=== PATIENT | female | born 1990 | race Caucasian/White ===

== ENCOUNTER 2016-11-30 12:57 | Emergency (ER) | payer OTHER ==
[~2016-11-30] VITALS: Ht 167.6 cm; Wt 73.5 kg
[~2016-11-30 12:57] MED LIST: AMOXICILLIN875 MG PO; ANAPROX DS550 M1 PO; AUGMENTIN875 MG PO; BARACLUDE1 MG PO; BIOTENE PO; BIOTIN1000 MICRO PO; Bentyl PO; CELLCEPT500 MG PO; CLEOCIN300 MG PO; CLONAZEPAM0.5 MG PO; COLACE100 MG PO; FLAGYL500 MG PO; FLORASTOR250 MG PO; KEFLEX500 MG PO; KLONOPIN0.5 M1 PO; LASIX80 MG PO; LORTAB 5-325 M1 EACH PO; MIRALAX17 GM PO; MYFORTIC180 MG PO; OXYCONTIN; OXYCONTIN10 MG PO; PERCOCET 5/31 TABLET PO; PHENERGAN12.5 M1 PO; PREDNISONE20 MG PO; PRENATAL TABLE1 EAC3 PO; PROGRAF; PROGRAF1 MG PO; PROGRAF5 MG PO; Phenergan PO; Protonix PO; SPIRONOLACTONE100 MG PO; TRAMADOL HCL50 MG PO; ULTRAM50 MG PO; VIREAD300 MG PO; ZITHROMAX Z-PA250 MG PO; ZOFRAN ODT4 MG PO; ZOFRAN4 MG PO; ZYRTEC10 M2 PO
[2016-11-30 13:29] LABS: ADD MIUA? YES; BILIRUBIN SMALL; BLOOD NEGATIVE; COLOR DK YELLOW ((YELLOW)); GLUCOSE (STRIP) NEGATIVE; KETONES TRACE; LEUKOCYTES SMALL; NITRITE NEGATIVE; PH, URINE 5.5 (5-8); PROTEIN (STRIP) TRACE; SPECIFIC GRAVITY 1.024 (1.000-1.030); UROBILINOGEN 0.2 MG/DL (0.2-1.0)
[2016-11-30 14:08] LABS: BACTERIA RARE; CASTS NONE SEEN /LPF; CRYSTALS NONE SEEN; EPITHELIAL CELLS 1+; MUCUS NONE SEEN; RED BLOOD CELLS NONE SEEN /HPF (0-5); UCUL ADDED? NO; WHITE BLOOD CELLS RARE /HPF (0-5)
[2016-11-30 15:54] LABS: CHLORIDE 109 mEq/L (99-109); POTASSIUM 4.4 mEq/L (3.7-5.4); SODIUM 139 mEq/L (136-147)
[2016-11-30 15:56] LABS: GLUCOSE 96 mg/dL (70-99)
[2016-11-30 15:57] LABS: ANION GAP 9 MEQ/L (2-14)
[2016-11-30 15:58] LABS: TOTAL BILIRUBIN 0.5 mg/dL (0.0-1.0)
[2016-11-30 15:59] LABS: ALKALINE PHOSPHATASE 55 IU/L (3-129); HEMATOCRIT 30.8 % (36.0-46.0); MCH 27.9 PG (29.0-34.0); MCHC 32.8 G/DL (30.0-36.0); MCV 85.1 FL (83-99); RBC DIS.WIDTH-SD 51.3 % (39-53); RED BLOOD COUNT 3.62 M/uL (3.80-5.20); WHITE BLOOD COUNT 8.3 K/uL (4.1-10.2)
[2016-11-30 16:00] LABS: GFR ESTIMATE (CALCULATED) > 59 mL/min/
[2016-11-30 16:01] LABS: UREA NITROGEN (BUN) 24 mg/dL (9-23)
[2016-11-30 16:03] LABS: LIPASE 19 U/L (1.0-51.0)
[2016-11-30 16:09] LABS: QUANTITATIVE HCG < 4.0 MIU/ML
[2016-11-30] MEDS ORDERED: KEFLEX500 MG PO (16:20)
[2016-11-30 16:26] LABS: MEAN PLAT.VOLUME 13.3 uM^3 (9.5-12.4); PLATELET COUNT 253 K/uL (156-360)
[2016-11-30 16:38] VITALS: BP 102/62
== END 2016-11-30 16:45 | disposition home or self-care (01) ==
LOC: EME 12:57
PROVIDERS: Nurse Practitioner Family
DX: N39.0 Urinary tract infection, site not specified (principal); N12 Tubulo-interstitial nephritis, not specified as acute or chronic; B19.10 Unspecified viral hepatitis B without hepatic coma; Z94.4 Liver transplant status; Z88.6 Allergy status to analgesic agent
CPT/HCPCS: 80053; 81003; 83690; 84702; 85027; 99281; 99284

== ENCOUNTER 2017-01-09 15:51 | Emergency (ER) | payer OTHER ==
[~2017-01-09] VITALS: Ht 167.6 cm; Wt 71.4 kg
[2017-01-09 17:00] LABS: BASOPHIL COUNT 0.1 K/uL (0-0.1); EOSINOPHIL COUNT 0.2 K/uL (0-0.3); HEMATOCRIT 26.9 % (36.0-46.0); IMMATURE GRANULOCYTE (%) 0.1 % (0.0-0.7); IMMATURE GRANULOCYTE COUNT 0.1 K/uL; LYMPHOCYTE COUNT 3.2 K/uL (1.0-2.8); MCH 28.1 PG (29.0-34.0); MCHC 33.5 G/DL (30.0-36.0); MCV 84.1 FL (83-99); MEAN PLAT.VOLUME 12.6 uM^3 (9.5-12.4); MONOCYTE (%) 10.5 % (3-12); MONOCYTE COUNT 0.9 K/uL (0-0.8); NEUTROPHIL (%) 47.6 % (45-76); NEUTROPHIL COUNT 3.9 K/uL (1.8-6.4); PLATELET COUNT 244 K/uL (156-360); RBC DIS.WIDTH-CV 15.1 % (11.8-14.6); WHITE BLOOD COUNT 8.1 K/uL (4.1-10.2)
[2017-01-09 17:10] LABS: CHLORIDE 112 mEq/L (99-109); POTASSIUM 3.8 mEq/L (3.7-5.4); SODIUM 140 mEq/L (136-147)
[2017-01-09 17:12] LABS: GLUCOSE 85 mg/dL (70-99)
[2017-01-09 17:14] LABS: ANION GAP 6 MEQ/L (2-14); TOTAL BILIRUBIN 0.5 mg/dL (0.0-1.0)
[2017-01-09 17:18] LABS: ALKALINE PHOSPHATASE 51 IU/L (3-129); GFR ESTIMATE (CALCULATED) > 59 mL/min/; UREA NITROGEN (BUN) 23 mg/dL (9-23)
[2017-01-09 17:19] LABS: LIPASE 23 U/L (1.0-51.0)
[2017-01-09 17:34] LABS: INTER. NORMALIZED RATIO 1.1; PTT 31.7 (25-32)
[2017-01-09] MEDS ORDERED: ANUSOL HC,ANUCO25 MG PR (19:00)
[2017-01-09] MEDS ORDERED: ANUSOL-HC21 GM PR (19:08)
[2017-01-09 19:26] VITALS: BP 94/72
[2017-01-11 11:17] LABS: POC NON-PRINT COM 1 ND
== END 2017-01-09 19:27 | disposition home or self-care (01) ==
LOC: EME 15:51
PROVIDERS: Physician Assistant
DX: K64.9 Unspecified hemorrhoids (principal); K62.5 Hemorrhage of anus and rectum; D64.9 Anemia, unspecified; Z94.4 Liver transplant status
CPT/HCPCS: 80053; 81003; 82272; 83690; 85025; 85610; 85730; 99281; 99284

== ENCOUNTER 2017-02-21 17:41 | Emergency (ER) | payer OTHER ==
[~2017-02-21] VITALS: Ht 167.6 cm; Wt 71.7 kg
[~2017-02-21 17:41] MED LIST changes: +ANUSOL HC,ANUCO25 MG PR; +ANUSOL-HC21 GM PR
[2017-02-21 18:36] LABS: HEMATOCRIT 28.5 % (36.0-46.0); MCH 26.9 PG (29.0-34.0); MCHC 32.3 G/DL (30.0-36.0); MCV 83.3 FL (83-99); MEAN PLAT.VOLUME 11.5 uM^3 (9.5-12.4); PLATELET COUNT 337 K/uL (156-360); RBC DIS.WIDTH-CV 15.7 % (11.8-14.6); RBC DIS.WIDTH-SD 47.3 % (39-53); RED BLOOD COUNT 3.42 M/uL (3.80-5.20); WHITE BLOOD COUNT 8.7 K/uL (4.1-10.2)
[2017-02-21 18:45] LABS: CHLORIDE 107 mEq/L (99-109); POTASSIUM 4.1 mEq/L (3.7-5.4); SODIUM 138 mEq/L (136-147)
[2017-02-21 18:47] LABS: GLUCOSE 80 mg/dL (70-99)
[2017-02-21 18:48] LABS: ANION GAP 11 MEQ/L (2-14)
[2017-02-21 18:51] LABS: GFR ESTIMATE (CALCULATED) > 59 mL/min/; UREA NITROGEN (BUN) 28 mg/dL (9-23)
[2017-02-21 18:57] LABS: TROP-I INTERPRETATION NEGATIVE; TROPONIN-I < 0.01 ng/mL (0.0-0.30)
[2017-02-21 20:11] LABS: D-DIMER ELISA 0.24 mg/L FEU (< 0.57)
[2017-02-21 20:51] VITALS: BP 111/70
== END 2017-02-21 20:54 | disposition left against medical advice (07) ==
LOC: EME 17:41
DX: R07.9 Chest pain, unspecified (principal); Z94.4 Liver transplant status; Z53.29 Procedure and treatment not carried out because of patient's decision for other reasons
CPT/HCPCS: 71020; 80048; 84484; 85027; 85379; 93005; 99281; 99284

== ENCOUNTER 2017-08-14 20:54 | Emergency (ER) | payer OTHER ==
[~2017-08-14] VITALS: Ht 167.6 cm; Wt 74.8 kg
[2017-08-14 21:20] LABS: HEMATOCRIT 28.2 % (36.0-46.0); MCH 26.5 PG (29.0-34.0); MCHC 32.3 G/DL (30.0-36.0); MEAN PLAT.VOLUME 11.6 uM^3 (9.5-12.4); PLATELET COUNT 322 K/uL (156-360); RBC DIS.WIDTH-CV 18.6 % (11.8-14.6); RBC DIS.WIDTH-SD 55.8 % (39-53); RED BLOOD COUNT 3.44 M/uL (3.80-5.20); WHITE BLOOD COUNT 7.5 K/uL (4.1-10.2)
[2017-08-14 21:30] LABS: CHLORIDE 108 mEq/L (99-109); POTASSIUM 3.9 mEq/L (3.7-5.4); SODIUM 141 mEq/L (136-147)
[2017-08-14 21:33] LABS: GLUCOSE 112 mg/dL (70-99)
[2017-08-14 21:34] LABS: ANION GAP 11 MEQ/L (2-14)
[2017-08-14 21:35] LABS: TOTAL BILIRUBIN 0.4 mg/dL (0.0-1.0)
[2017-08-14 21:36] LABS: ALKALINE PHOSPHATASE 57 IU/L (3-129); GFR ESTIMATE (CALCULATED) > 59 mL/min/
[2017-08-14 21:37] LABS: UREA NITROGEN (BUN) 19 mg/dL (9-23)
[2017-08-14 21:45] LABS: QUANTITATIVE HCG < 4.0 MIU/ML
[2017-08-14 22:04] LABS: ADD MIUA? YES; BILIRUBIN NEGATIVE; BLOOD NEGATIVE; COLOR YELLOW ((YELLOW)); GLUCOSE (STRIP) NEGATIVE; KETONES NEGATIVE; LEUKOCYTES TRACE; NITRITE NEGATIVE; PROTEIN (STRIP) 30; SPECIFIC GRAVITY 1.018 (1.000-1.030); UROBILINOGEN 0.2 MG/DL (0.2-1.0)
[2017-08-14 22:22] LABS: BACTERIA 2+ /HPF; CASTS NONE SEEN /LPF; CRYSTALS NONE SEEN; EPITHELIAL CELLS 2+ /HPF; MUCUS NONE SEEN /LPF; RED BLOOD CELLS NONE SEEN /HPF (0-5); UCUL ADDED? YES
[2017-08-14 23:18] LABS: INFLUENZA A VIRAL ANTIGEN NEGATIVE; INFLUENZA B VIRAL ANTIGEN NEGATIVE
[2017-08-14] MEDS ORDERED: CIPRO500 MG PO (23:37)
[2017-08-14 23:41] VITALS: BP 110/75
== END 2017-08-14 23:51 | disposition home or self-care (01) ==
LOC: EME 20:54
PROVIDERS: Emergency Medicine
DX: N39.0 Urinary tract infection, site not specified (principal); R51 Headache; Z94.4 Liver transplant status; Z90.81 Acquired absence of spleen
CPT/HCPCS: 71020; 80053; 81003; 84702; 85027; 87086; 87502; 99281; 99284; J0780

== ENCOUNTER 2017-12-01 11:01 | Emergency (ER) | payer OTHER ==
[~2017-12-01] VITALS: Ht 167.6 cm; Wt 82.2 kg
[~2017-12-01 11:01] MED LIST changes: +CIPRO500 MG PO
[2017-12-01 13:45] LABS: HEMOGLOBIN 8.8 G/DL (11.9-15.5); MCHC 32.6 G/DL (30.0-36.0); MCV 79.9 FL (83-99); PLATELET COUNT 331 K/uL (156-360); RBC DIS.WIDTH-SD 49.1 % (39-53); RED BLOOD COUNT 3.38 M/uL (3.80-5.20); WHITE BLOOD COUNT 7.6 K/uL (4.1-10.2)
[2017-12-01 13:57] LABS: ALBUMIN 3.8 g/dL (3.2-4.8); CHLORIDE 111 mEq/L (99-109); SODIUM 136 mEq/L (136-147)
[2017-12-01 13:59] LABS: GLUCOSE 98 mg/dL (70-99)
[2017-12-01 14:00] LABS: TOTAL PROTEIN 7.5 g/dL (6.4-8.3)
[2017-12-01 14:01] LABS: TOTAL BILIRUBIN 0.2 mg/dL (0.0-1.0)
[2017-12-01 14:03] LABS: ALKALINE PHOSPHATASE 61 IU/L (3-129); CREATININE 1.1 mg/dL (0.6-1.3); GFR ESTIMATE (CALCULATED) > 59 mL/min/
[2017-12-01 14:05] LABS: AST (GOT) 18 IU/L (2-34)
[2017-12-01 14:06] LABS: ALT (GPT) 16 IU/L (3-49); LIPASE 24 U/L (1.0-51.0); UREA NITROGEN (BUN) 29 mg/dL (9-23)
[2017-12-01 14:15] LABS: QUANTITATIVE HCG < 4.0 MIU/ML
[2017-12-01 14:17] LABS: APPEARANCE SL.HAZY ((CLEAR)); BILIRUBIN NEGATIVE; BLOOD MODERATE; COLOR YELLOW ((YELLOW)); GLUCOSE (STRIP) NEGATIVE; KETONES NEGATIVE; LEUKOCYTES MODERATE; NITRITE NEGATIVE; PROTEIN (STRIP) NEGATIVE; SPECIFIC GRAVITY 1.016 (1.000-1.030); UROBILINOGEN 0.2 MG/DL (0.2-1.0)
[2017-12-01 14:31] LABS: BACTERIA 1+ /HPF; EPITHELIAL CELLS 2+ /HPF; MUCUS NONE SEEN /LPF; WHITE BLOOD CELLS 15-20 /HPF (0-5)
[2017-12-01] MEDS ORDERED: ZOFRAN ODT4 MG PO (14:37)
[2017-12-01 15:08] VITALS: BP 109/69
== END 2017-12-01 15:09 | disposition home or self-care (01) ==
LOC: EME 11:01
PROVIDERS: Nurse Practitioner Family
DX: N39.0 Urinary tract infection, site not specified (principal); Z94.4 Liver transplant status; Z87.440 Personal history of urinary (tract) infections; Z90.49 Acquired absence of other specified parts of digestive tract; Z88.6 Allergy status to analgesic agent
CPT/HCPCS: 80053; 81003; 83690; 84702; 85027; 99281; 99284

== ENCOUNTER 2018-05-10 16:52 | Emergency (ER) | payer SELFPAY ==
[~2018-05-10] VITALS: Ht 167.6 cm; Wt 94.0 kg
[2018-05-10 18:45] LABS: HEMATOCRIT 29.3 % (36.0-46.0); HEMOGLOBIN 9.6 G/DL (11.9-15.5); MCH 25.7 PG (29.0-34.0); MCHC 32.8 G/DL (30.0-36.0); MCV 78.6 FL (83-99); PLATELET COUNT 419 K/uL (156-360); RBC DIS.WIDTH-SD 53.3 % (39-53); RED BLOOD COUNT 3.73 M/uL (3.80-5.20); WHITE BLOOD COUNT 9.2 K/uL (4.1-10.2)
[2018-05-10 18:57] LABS: CHLORIDE 105 mEq/L (99-109); POTASSIUM 4.6 mEq/L (3.7-5.4); SODIUM 135 mEq/L (136-147)
[2018-05-10 18:59] LABS: GLUCOSE 88 mg/dL (70-99)
[2018-05-10 19:00] LABS: TOTAL PROTEIN 7.9 g/dL (6.4-8.3)
[2018-05-10 19:01] LABS: TOTAL BILIRUBIN 0.3 mg/dL (0.0-1.0)
[2018-05-10 19:03] LABS: ALKALINE PHOSPHATASE 71 IU/L (3-129); CREATININE 1.4 mg/dL (0.6-1.3); GFR ESTIMATE (CALCULATED) 47 mL/min/
[2018-05-10 19:04] LABS: UREA NITROGEN (BUN) 24 mg/dL (9-23)
[2018-05-10 19:05] LABS: AST (GOT) 19 IU/L (2-34)
[2018-05-10 19:06] LABS: ALT (GPT) 25 IU/L (3-49)
[2018-05-10 19:15] LABS: QUANTITATIVE HCG < 4.0 MIU/ML
[2018-05-10 20:13] LABS: APPEARANCE CLEAR ((CLEAR)); BILIRUBIN NEGATIVE; BLOOD LARGE; COLOR YELLOW ((YELLOW)); GLUCOSE (STRIP) NEGATIVE; KETONES NEGATIVE; LEUKOCYTES TRACE; NITRITE NEGATIVE; PROTEIN (STRIP) NEGATIVE; SPECIFIC GRAVITY 1.016 (1.000-1.030); UROBILINOGEN 0.2 MG/DL (0.2-1.0)
[2018-05-10 20:21] LABS: BACTERIA RARE /HPF; EPITHELIAL CELLS 1+ /HPF; MUCUS NONE SEEN /LPF; RED BLOOD CELLS 0-5 /HPF (0-5); UCUL ADDED? YES
[2018-05-10 22:27] VITALS: BP 118/79
== END 2018-05-10 22:28 | disposition home or self-care (01) ==
LOC: EME 16:52 → RME 16:52
DX: K43.9 Ventral hernia without obstruction or gangrene (principal); Z94.4 Liver transplant status; Z90.49 Acquired absence of other specified parts of digestive tract; Z90.81 Acquired absence of spleen; Z88.6 Allergy status to analgesic agent
CPT/HCPCS: 74177; 80053; 81003; 84702; 85027; 87086; 99281; 99284; J7120

== ENCOUNTER 2018-06-04 06:13 | Emergency (ER) | payer SELFPAY ==
[~2018-06-04] VITALS: Ht 167.6 cm; Wt 93.0 kg
[2018-06-04 06:58] LABS: APPEARANCE CLEAR ((CLEAR)); BILIRUBIN NEGATIVE; BLOOD NEGATIVE; COLOR YELLOW ((YELLOW)); GLUCOSE (STRIP) NEGATIVE; KETONES NEGATIVE; LEUKOCYTES TRACE; NITRITE NEGATIVE; PROTEIN (STRIP) NEGATIVE; SPECIFIC GRAVITY 1.017 (1.000-1.030); UROBILINOGEN 0.2 MG/DL (0.2-1.0)
[2018-06-04 07:02] LABS: BACTERIA RARE /HPF; EPITHELIAL CELLS 1+ /HPF; HYALINE CASTS 0-5 /LPF; MUCUS TRACE /LPF; RED BLOOD CELLS 0-5 /HPF (0-5); WHITE BLOOD CELLS 0-5 /HPF (0-5)
[2018-06-04 07:20] LABS: MCH 25.9 PG (29.0-34.0); MCHC 33.3 G/DL (30.0-36.0); MCV 77.7 FL (83-99); PLATELET COUNT 329 K/uL (156-360); RBC DIS.WIDTH-CV 19.3 % (11.8-14.6); RBC DIS.WIDTH-SD 53.3 % (39-53); RED BLOOD COUNT 3.86 M/uL (3.80-5.20); WHITE BLOOD COUNT 8.2 K/uL (4.1-10.2)
[2018-06-04 07:48] LABS: ALBUMIN 4.1 G/DL (3.2-4.8); ALKALINE PHOSPHATASE 56 IU/L (3-129); ALT (GPT) 13 IU/L (3-49); AST (GOT) 15 IU/L (2-34); CHLORIDE 107 MEQ/L (99-109); CREATININE 0.9 MG/DL (0.6-1.3); GFR ESTIMATE (CALCULATED) > 59 mL/min/; GLUCOSE 93 mg/dL (70-99); POTASSIUM 3.6 MEQ/L (3.7-5.4); SODIUM 137 MEQ/L (136-147); TOTAL BILIRUBIN 0.5 MG/DL (0.0-1.0); TOTAL PROTEIN 7.5 G/DL (6.4-8.3); UREA NITROGEN (BUN) 18 mg/dL (9-23)
[2018-06-04] MEDS ORDERED: PEPCID20 MG PO (07:55)
[2018-06-04 08:05] VITALS: BP 109/68
== END 2018-06-04 08:06 | disposition home or self-care (01) ==
LOC: EME 06:13
PROVIDERS: Nurse Practitioner Family
DX: L29.9 Pruritus, unspecified (principal); Z94.4 Liver transplant status
CPT/HCPCS: 80053; 81003; 85027; 99281; 99284